=== PATIENT | male | born 1980 | race Caucasian/White ===

== ENCOUNTER 2023-11-08 11:21 | Inpatient (IN) | payer MEDICAID ==
[~2023-11-08] VITALS: Ht 177.8 cm; Wt 80.7 kg
[2023-11-08] MEDS ORDERED: BRIXADI128 MG/0.3 SUB-Q (11:37)
[2023-11-08 11:41] LABS: BASOPHILS 0.3 % (0-2); HEMATOCRIT 44.4 % (35.0-50.0); HEMOGLOBIN 14.7 g/dL (12.0-18.0); LYMPHOCYTES 19.6 % (24-44); MCH 28.7 (27-36); MCHC 33.1 g/dl (30-36); MCV 86.8 fl (81-99); MONOCYTES 8.8 % (0-12); NEUTROPHILS 71.3 % (39-80); PLATELET COUNT 321 K/uL (140-440); RBC 5.11 M/ul (4.3-5.7); RDW 14.5 (10.5-15.0)
[2023-11-08] MEDS ORDERED: MULTIVITAMINS 10 ML,FOLIC ACID 1 MG,THIAMINE HCL 100 MG in SODIUM CHLORIDE 0.9% 1,000 ML IV ONE (11:45)
[2023-11-08] MEDS ORDERED: ondansetron HCL 4 MG/2 ML VIAL IV ONE (11:45)
[2023-11-08] MEDS ORDERED: PANTOPRAZOLE SODIUM 40 MG/10 ML VIAL IV ONE (11:45)
[2023-11-08 11:54] LABS: ALBUMIN 5.1 g/dL (3.4-5.0); ALBUMIN/GLOBULIN RATIO 1.34 (1.1-2.4); ANION GAP 29.3 (7-21); BILIRUBIN, TOTAL 0.7 ng/dL (0.2-1.0); BUN/CREATININE RATIO 16.94 (6.0-28.6); CREATININE, SERUM 1.77 mg/dL (0.70-1.30); MAGNESIUM 2.6 mg/dL (1.8-2.4); POTASSIUM 4.3 mmol/L (3.5-5.1); PROTEIN, TOTAL 8.9 g/dL (6.4-8.2)
[2023-11-08] MEDS ORDERED: LIDOCAINE & ANTACID 35 ML BTL PO ONE (12:45)
[2023-11-08 13:38] LABS: BILIRUBIN, URINE NEGATIVE (negative); BLOOD/HGB, URINE NEGATIVE (Negative); KETONE, URINE >=80 (Negative); LEUK ESTERASE, URINE NEGATIVE (negative); NITRITE, URINE NEGATIVE (negative)
[2023-11-08] MEDS ORDERED: SODIUM CHLORIDE 0.9% 1,000 ML IV PRN (14:15)
[2023-11-08] MEDS ORDERED: METOCLOPRAMIDE HCL 10 MG/2 ML SDV IV ONE (14:15)
[2023-11-08 15:57] LABS: AMPHETAMINES, URINE NEGATIVE (NEGATIVE); BARBITURATES, URINE NEGATIVE (NEGATIVE); BENZODIAZEPINE, URINE NEGATIVE (NEGATIVE); BUPRENORPHINE, URINE POSITIVE (NEGATIVE); CANNABINOID, URINE NEGATIVE (NEGATIVE); COCAINE, URINE NEGATIVE (NEGATIVE); ECSTASY, URINE NEGATIVE (NEGATIVE); FENTANYL, URINE NEGATIVE (NEGATIVE); METHADONE, URINE NEGATIVE (NEGATIVE); OPIATES, URINE NEGATIVE (NEGATIVE); OXYCODONE, URINE NEGATIVE (NEGATIVE); PHENCYCLIDINE, URINE NEGATIVE (NEGATIVE)
[2023-11-08] MEDS ORDERED: LACTATED RINGER'S 1,000 ML IV SCH (17:45)
[2023-11-08] MEDS ORDERED: ondansetron HCL 4 MG/2 ML VIAL IV PRN (17:45)
[2023-11-08 18:31] VITALS: BP 139/71
[2023-11-08 20:14] LABS: PH, VENOUS 7.218 (7.31-7.41)
--- NOTE | 2023-11-08 20:25 | NUR ---
PT ADMITTED TO ROOM 114 FROM ED AT 1834. IS A/O, RA. COMPLETED ADMISSION PROCESS, APPLE JUICE PROVIDED PER PRIMARY RN, WELL ICE WATER. PT DRANK APPLE JUICE AND REQUESTED MORE, PROVIDED. WHILE RN IN ROOM, DR JASSO INTO ROOM TO ASSESS. PT ASKED QUESTIONS, PROVIDED ANSWERS. REPORTED TO JUSTIN, PRIMARY RN, PT WAS NAUSEATED AND REQUESTED SOMETHING. EDUCATED PT ON HOW TO USE THE CALL LIGHT, URINAL PLACED WITHIN REACH. EDUCATED PT TO TRY TO KEEP LEFT ARM STRAIGHT DUE TO IV INFUSING IN AC. STATED UNDERSTANDING, HOWEVER FORGETS.
--- NOTE | 2023-11-08 20:26 | NUR ---
Pt c/o n/v, Medicated with Zofran IV. IVF infusing LAC, Cooperative with admit assessment and questions. On room air, clear lungs, abd soft, tender, LBM 11/05. moves all extremities well. Flat affect at thist abhilash and anxious, reassured, all questions answered to his satisfaction. Cooperative
[2023-11-08] MEDS ORDERED: DEXTROSE 5% - NACL 0.45% 1,000 ML IV SCH (20:45)
--- NOTE | 2023-11-08 20:48 | NUR ---
PT GAVE PERMISSION TO CONTACT HIS SON ALANNA AT [phone]. UPDATES GIVEN, QUESTIONS ANSWERED.
[2023-11-08] MEDS ORDERED: Buprenorphine/Naloxone 8/2mg 1 EACH HOME.PACK SL SCH (21:00)
[2023-11-08] MEDS ORDERED: NALOXONE 4 MG NASAL SPRAY #2 HOME.PACK NAS ONE (21:00)
[2023-11-08] MEDS ORDERED: buprenorphine HCL 8 MG TAB.SUBL SL SCH (21:37)
[2023-11-08] MEDS ORDERED: buprenorphine HCL 2 MG TAB.SUBL SL PRN (21:45)
[2023-11-08 21:57] VITALS: BP 120/78
[2023-11-08 21:59] VITALS: BP 120/78
--- NOTE | 2023-11-08 23:13 | NUR ---
RESTING, EYES CLOSED, NO S/SX DISTRESS. IVF INFUSING W/O PROBLEMS. NO FURTHER C/O N/V
[2023-11-09] VITALS (11 sets, daily range): BP systolic 110–133; BP diastolic 63–72
--- NOTE | 2023-11-09 01:24 | NUR ---
Resting, eyes closed, no further c/o abd n/v, IVF infusing
--- NOTE | 2023-11-09 02:19 | NUR ---
used call light, SBA to brp, voided, no bm. Back to bed independent. IVF infusing, fresh grape juice give on requsts. no further c/o abd pain or N/V
[2023-11-09 05:57] LABS: BASOPHILS 0.6 % (0-2); EOSINOPHILS 0.8 % (0-6); HEMATOCRIT 36.4 % (35.0-50.0); HEMOGLOBIN 11.9 g/dL (12.0-18.0); LYMPHOCYTES 30.4 % (24-44); MCH 28.6 (27-36); MCHC 32.8 g/dl (30-36); MONOCYTES 10.8 % (0-12); NEUTROPHILS 57.4 % (39-80); PLATELET COUNT 235 K/uL (140-440); RBC 4.18 M/ul (4.3-5.7); RDW 14.5 (10.5-15.0)
[2023-11-09 06:15] LABS: ANION GAP 13.8 (7-21); BUN/CREATININE RATIO 9.92 (6.0-28.6); CREATININE, SERUM 1.41 mg/dL (0.70-1.30); MAGNESIUM 2.2 mg/dL (1.8-2.4); PHOSPHORUS, INORGANIC 1.8 mg/dL (2.5-4.9); POTASSIUM 3.8 mmol/L (3.5-5.1)
--- NOTE | 2023-11-09 07:05 | NUR ---
REPORT RECEIVED FROM GARRISON ANDERSON. PT SUPINE IN BED WITH EYES CLOSED, RR EVEN AND UNLABORED. CALL LIGHT AT BEDSIDE, NO NEEDS IDENTIFIED AT THIS TIME.
--- NOTE | 2023-11-09 08:55 | NUR ---
WENT IN TO UPDATE WHITEBOARD. PATIENT WAS SLEEPING. GOT HIM FRESH ICE WATER. PATIENT'S CLEAR TRAY IN ROOM.
--- NOTE | 2023-11-09 09:58 | NUR ---
ROUNDING ON PT, PT SUPINE IN BED WITH EYES CLOSED, RR EVEN AND UNLABORED. CALL LIGHT IN REACH, NO NEEDS IDENTIFIED.
--- NOTE | 2023-11-09 10:30 | NUR ---
Spoke with Humberto. He awakens to voice. He lives in [place] and was here with friends for [place]. He lives in an appartment with his two teenagers. He does not use any DME. He drives and works. His sister lives nearby. He is able to complete all his house hold tasks. He denies financial issues and does not get food stamps or use a food bank. Plans on dc to home when medically cleared. Friends will return to get him. He denies alcohol use and states he seldom drinks. Denies ever having pancreatitis in the past.
[2023-11-09] MEDS ORDERED: PHARMACY RENAL DOSE ADJUSTMENT 1 DOSE MISC PO SCH (12:00)
[2023-11-09] MEDS ORDERED: POTASSIUM PHOSPHATE 30 MMOL in DEXTROSE 5% 500 ML IV ONE (13:15)
--- NOTE | 2023-11-09 15:30 | NUR ---
IN TO ROUND ON PT AND SECOND ASSESSMENT. PT RESTING SUPINE IN BED, OPENS EYES WHEN THIS RN ENTERS. PT WITH NO C/O NAUSEA OR PAIN. REPORTS HE HAS NOT HAD A BM X3 DAYS BUT DOES NOT WANT TO TAKE ANYTHING FOR THIS. PT REQUESTING CHICKEN NOODLE SOUP, RETRIEVED. CALL LIGHT IN REACH, NO OTHER NEEDS NOTED AT THIS TIME.
--- NOTE | 2023-11-09 16:57 | NUR ---
IN TO ROUND ON PT, PT REPORTS EATING ABOUT 50% OF CHICKEN NOODLE SOUP HE ORDERED. NO NAUSEA. TOLERATING WELL. CALL LIGHT IN REACH, NO NEEDS NOTED.
--- NOTE | 2023-11-09 18:23 | NUR ---
PT VOIDS 800 MLS OF VERY CLOUDY, ORANGE URINE. DR. JASSO NOTIFIED, NEW ORDER FOR UA RECEIVED. PT TOLERATING PT INTAKE WELL. PT ADVANCED TO REGULAR DIET.
[2023-11-09 18:35] LABS: BILIRUBIN, URINE NEGATIVE (negative); BLOOD/HGB, URINE NEGATIVE (Negative); KETONE, URINE SMALL (Negative); LEUK ESTERASE, URINE NEGATIVE (negative); NITRITE, URINE NEGATIVE (negative)
[2023-11-09 18:43] LABS: BACTERIA, URINE RARE /hpf (negative); CASTS, URINE NONE SEEN \\lpf; COLLECTION TYPE, URINE CLEAN CATCH; CRYSTALS, URINE AMORPHOUS URATES 4+ (0-1+); EPITHELIAL CELLS, URINE 0 /lpf (0-1+); RED BLOOD CELLS, URINE 0-1 /hpf (0-5); REFLEX CULTURE, URINE No (No); WHITE BLOOD CELLS, URINE 0-1 /HPF (0-5)
--- NOTE | 2023-11-09 20:05 | NUR ---
In bed, resting, no c/o abd pain or N?V. SL patent. cooperative with vitals and assessment. fresh juice given on request. On room air, clear lungs, abd soft, HARSHA, denies b today, yes to passing gas, independent in room.
--- NOTE | 2023-11-09 21:08 | NUR ---
Pt c/o feeling nauseated, medicated with Zofran. Pt in bed, turns and repositions self in bed
--- NOTE | 2023-11-09 23:40 | NUR ---
Resting, eyes closed, on room air, no further c/o n/v. turns and reposition self in bed
--- NOTE | 2023-11-10 02:14 | NUR ---
RESTING, EYES CLOSED, NO S/SX DISTRESS, VOIDING LIGHT TEA COLORED URINE. NO C/O PAIN OR N/V
--- NOTE | 2023-11-10 03:44 | NUR ---
Resting, eyes closed, no s/sx distress. resp even unlabored. turns and repositions self in bed
[2023-11-10 05:16] VITALS: BP 125/63
[2023-11-10 05:18] VITALS: BP 125/63
[2023-11-10 05:19] LABS: BASOPHILS 0.4 % (0-2); EOSINOPHILS 1.4 % (0-6); HEMATOCRIT 36.2 % (35.0-50.0); HEMOGLOBIN 12.1 g/dL (12.0-18.0); LYMPHOCYTES 43.4 % (24-44); MCH 28.6 (27-36); MCHC 33.4 g/dl (30-36); MCV 85.9 fl (81-99); MONOCYTES 11.6 % (0-12); NEUTROPHILS 43.2 % (39-80); PLATELET COUNT 196 K/uL (140-440); RBC 4.22 M/ul (4.3-5.7); RDW 14.4 (10.5-15.0)
--- NOTE | 2023-11-10 05:24 | NUR ---
awakens easily, no c/o pain or n/v. on room air, up independent to brp, voiding QS dark colored urine. tolerating fluids well. juice given on request
[2023-11-10 05:32] LABS: ANION GAP 13.5 (7-21); CALCIUM 8.3 mg/dL (8.5-10.1); MAGNESIUM 2.1 mg/dL (1.8-2.4); POTASSIUM 3.5 mmol/L (3.5-5.1)
--- NOTE | 2023-11-10 07:25 | NUR ---
REPORT RECEIVED FROM GARRISON ANDERSON. PT NOTED IN BED, EYES CLOSED, RR EVEN AND UNLABORED, KNEES DRAWN UP. CALL LIGHT IN REACH, NO NEEDS IDENTIFIED.
[2023-11-10 09:09] VITALS: BP 126/69
--- NOTE | 2023-11-10 09:29 | NUR ---
PATIENT AWAKE IN BED, VITALS AND I&IS CHARTED. REFUSED BREAKFAST, DRANK GRAPE JUICE AND WATER. DR AT BEDSIDE. IV REMOVED, WILL SHOWER BEFORE DISCHARGNG THIS MORNING. CALL LIGHT IN EASY REACH
[2023-11-10] MEDS ORDERED: ONDANSETRON 4 MG TAB ODT SL ONE (09:45)
[2023-11-10] MEDS ORDERED: ONDANSETRON ODT8 MG PO (09:59)
[2023-11-10] MEDS ORDERED: ABILIFY5 MG PO (10:22)
--- NOTE | 2023-11-10 11:16 | NUR ---
DISCHARGE INSTRUCTIONS AND EDUCATION REVIEWED WITH PT, ALL QUESTIONS ANSWERED, VITALS TAKEN, IV REMOVED BY REECE HORTON, PT TAKEN VIA W/C TO FRONT OF HOSPITAL AND [facility]AXI.
== END 2023-11-10 11:00 | disposition home or self-care (01) | DRG 439 ==
LOC: ED 11:21 → MS 17:37
PROVIDERS: Emergency Medicine; ADMIT Student in an Organized Health Care Education/Training Program; ATTEND Student in an Organized Health Care Education/Training Program
DX: K85.90 Acute pancreatitis without necrosis or infection, unspecified (principal); E87.29 Other acidosis; N17.9 Acute kidney failure, unspecified; F11.90 Opioid use, unspecified, uncomplicated; E86.0 Dehydration; K76.0 Fatty (change of) liver, not elsewhere classified; Z79.899 Other long term (current) drug therapy; Z88.0 Allergy status to penicillin
CPT/HCPCS: 36415; 74177; 76705; 80048; 80053; 80307; 81001; 81003; 82803; 83605; 83690; 83735; 84100; 84478; 85025; A9270; G0480; J2405; J2470; J2765; J3411; J3490; J7030; J7042; J7060; J7121; Q9967